=== PATIENT | female | born 1980 | race Caucasian/White ===

== ENCOUNTER 2020-05-10 11:54 | Emergency (ER) | payer OTHER ==
[~2020-05-10] VITALS: Ht 157.5 cm; Wt 68.9 kg
== END 2020-05-10 13:26 | disposition home or self-care (01) ==
LOC: ER 11:54
DX: K21.00 Gastro-esophageal reflux disease with esophagitis, without bleeding (principal)

== ENCOUNTER 2023-08-10 13:51 | Outpatient (CLI) | payer OTHER | END 2023-08-10 13:57 | disposition home or self-care (01) | LOC: SONOGRAMA 13:51 | PROVIDERS: ATTEND Specialist | DX: D25.9 Leiomyoma of uterus, unspecified (principal) ==